=== PATIENT | male | born 1985 | race Caucasian/White ===

== ENCOUNTER 2016-06-13 19:06 | Inpatient (IN) | payer BC ==
[~2016-06-13] VITALS: Ht 190.5 cm; Wt 88.3 kg
[2016-06-13 19:09] VITALS: BP 103/46; PULSE 106; RESP 28; TEMP 97.6; O2SAT 99
[2016-06-13 20:20] VITALS: BP 123/56; PULSE 96; RESP 41; O2SAT 100
[2016-06-13 20:22] LABS: MEAN CORPUSCULAR HGB CONC 27.2 % (32.0-36.0)
[2016-06-13] MEDS ORDERED: SODIUM CHLOR 0.9% 1000 ML INJ 1,000 ML IV ONE ×3 (20:30→21:45)
[2016-06-13 20:35] LABS: BLOOD GAS VENOUS BASE EXCESS -25.9 mmol/L (-2-2); BLOOD GAS VENOUS HCO3 4 mmol/L (22-26); BLOOD GAS VENOUS O2 HGB SAT 63 % (70-76); BLOOD GAS VENOUS PCO2 15 mmHg (44-48); BLOOD GAS VENOUS PO2 41 mmHg (35-40); BLOOD GAS VENOUS pH 6.98 (7.360-7.400); TEMP CORR TO 98.6
[2016-06-13 20:36] LABS: CRITICAL VALUE YES; DRAW SITE IV; OXYGEN DEVICE ROOM AIR; STAT YES
[2016-06-13] MEDS ORDERED: DEXT 5%-NACL 0.9% 1000 ML INJ 1,000 ML IV SCH (20:38)
[2016-06-13] MEDS ORDERED: POTASSIUM CHLOR 20 MEQ PREMIX 100 ML IV PRN ×12 (20:45→22:15)
[2016-06-13] MEDS ORDERED: SODIUM PHOSPHATE INJ 15 MMOL in SODIUM CHLORIDE 0.9% INJ 100 ML IV PRN ×2 (20:45→22:15)
[2016-06-13] MEDS ORDERED: SODIUM BICARBONATE 8.4% SOLN 50 MEQ/50 ML VIAL IV PRN ×4 (20:45→22:15)
[2016-06-13] MEDS ORDERED: INSULIN REGULAR (IV INFUSION) 100 UNITS in SODIUM CHLORIDE 0.9% INJ 99 ML IV SCH ×2 (20:45→22:15)
[2016-06-13] MEDS ORDERED: POTASSIUM CHLOR 40 MEQ PREMIX 100 ML IV PRN ×4 (20:45→22:15)
[2016-06-13] MEDS ORDERED: INSULIN HUMAN REGULAR 1,000 UNITS/10 ML VIAL IV PUSH ONE (20:45)
--- NOTE | 2016-06-13 20:48 | PD ---
HPI Chief Complaint: Diabetic Time Seen by Provider: 20:16 Travel History International Travel<30 days: No Contact w/Intl Traveler<30days: No Traveled to known affect area: No History of Present Illness HPI The patient is a 31 year old male who presents to the [facility] emergency department with a history of not feeling well for the last 2 days. He reports that today he has been vomiting at least 20 times and also had loose stools a few times. The patient reports that he last administered NovoLog insulin 8-10 units this morning. He reports that sometime today his insulin upon ran out of insulin. He reports that he is a type I diabetic that was first diagnosed 20 years of age. He is visiting from out of town. The patient reports that initially he was pain frequently, however later this afternoon he has had darkening of his urine and decreased urine output. He reports that he is very thirsty, lightheaded, or generalized weakness. The patient reports that he was drinking alcohol yesterday. He reports that he drank approximately 7-8 drinks. He reports that he smokes one pack of cigarettes per day. He denies using any drugs. The patient denies having any known fevers, cough, congestion, neck pain, chest pain, or focal neurologic symptoms. The patient is brought in by his friend who reports that he was having difficulty getting ahold of them for the last 2 days. He finally went over to check on him and noticed that he was not acting like himself and brought him into the emergency department for evaluation and treatment. The patient on arrival is noted to have a blood sugar that is critically high. The patient is tachypneic with a respiratory rate in the 40s. [facility] Past Medical History Narrative Medical The patient's past medical history is significant for being diagnosed as a type I diabetic at 20 years of age Diabetes: Yes (TYPE 1) Patient Takes Glucophage: No Tetanus Vaccination: Unknown Influenza Vaccination: No Past Surgical History Narrative Surgical The patient's past surgical history is significant for having an insulin pump placed a year and a half ago. Surgical History: No Previous Surgery Social History Alcohol Use: Yes (occasionally) Tobacco Use: Yes (one pack per day) Substance Use: No Allergies-Medications (Allergen,Severity, Reaction): Coded Allergies: No Known Allergies (Unverified , 06/13/16) Reported Meds & Prescriptions Reported Meds & Active Scripts Active Active Prescriptions or Reported Medications Unobtainable Narrative Medication NovoLog Review of Systems Except as stated in HPI: all other systems reviewed are Neg General / Constitutional: No: Fever Eyes: No: Visual changes HENT: No: Headaches Cardiovascular: Positive: Dyspnea on exertion, No: Chest Pain or Discomfort Respiratory: Positive: Shortness of Breath, No: Cough Gastrointestinal: Positive: Nausea, Vomiting, Diarrhea, Abdominal Pain, Changes in Bowel Habits, Loss of Appetite Genitourinary: Positive: Decreased Urinary Output, No: Dysuria Musculoskeletal: No: Pain Skin: No Rash Neurologic: Positive: Weakness (generalized weak), Change in Mentation ( confusion), No: Focal Abnormalities, Coordination Problem, Slurred Speech, Sensory Disturbance Psychiatric: No: Depression Endocrine: No: Polydipsia Hematologic/Lymphatic: No: Easy Bruising Physical Exam Narrative General: The patient is a well-developed, thin appearing male, tachypneic on examination with generalized weakness. Head and Neck exam: Head is normocephalic atraumatic. Eyes: EOMI, pupils are equal round and reactive to light. Nose: Midline septum with pink mucous membranes Mouth: Dentition unremarkable. Dry mucus membranes. Posterior oropharynx is not erythematous. No tonsillar hypertrophy. Uvula midline. Airway patent. Neck: No palpable lymphadenopathy. No nuchal rigidity. No thyromegaly. Cardiovascular: Sinus tachycardia in the low 100s, wide complex noted on manager cardiac cath, i- STAT with creatinine was less ordered without murmurs, gallops, or rubs. No pulse deficit to the extremities. Lungs: Tachypnea with a rate in the 40s, Clear to auscultation bilaterally. No wheezes , rhonchi, or rales. Abdomen: Soft, with midepigastric abdominal discomfort on palpation. No tenderness on palpation of the other 4 quadrants of abdomen. No guarding, rebound, or rigidity. Normal bowel sounds are audible. Negative Lr's sign. No tenderness on palpation of McBurney's point. Extremities: No clubbing, cyanosis, or edema. 2+ pulses in all 4 extremities. No calf tenderness on palpation. Back: No spinous process tenderness to palpation. No costovertebral angle tenderness to palpation. Neurologic Exam: Cranial nerves 2-12 were intact on exam. Strength is 5/5 in all 4 extremities. No sensory deficits noted. The patient is oriented to person, however not place , time, or situation. Skin Exam: No rash noted. Intact skin that is warm and dry. Poor skin turgor. Data Data Last Documented VS Vital Signs Date Time Temp Pulse Resp B/P Pulse Ox O2 Delivery O2 Flow Rate FiO2 06/13/16 21:00 94 40 128/58 100 Nasal Cannula 2 06/13/16 19:09 97.6 Orders Electrocardiogram (06/13/16 20:19) Complete Blood Count With Diff (06/13/16 20:19) Urinalysis - C+S If Indicated (06/13/16 20:19) Chest, Single Ap (06/13/16 20:19) Iv Access Insert/Monitor (06/13/16 20:19) Ecg Monitoring (06/13/16 20:19) Oximetry (06/13/16 20:19) Sodium Chlor 0.9% 1000 Ml Inj (Ns 1000 M (06/13/16 20:30) Sodium Chlor 0.9% 1000 Ml Inj (Ns 1000 M (06/13/16 20:30) Blood Gas Venous (Vbg) (06/13/16 20:31) Diet Npo (06/14/16 Breakfast) Sodium Chlor 0.9% 1000 Ml Inj (Ns 1000 M (06/13/16 20:38) Dext 5%-Nacl 0.9% 1000 Ml Inj (D5w-Ns 10 (06/13/16 20:38) Insulin Human Regular Inj (Novolin R Inj (06/13/16 20:45) Insulin Regular (Iv Infusion) (Novolin R (06/13/16 20:45) Potassium Chlor 40 Meq Premix (Kcl 40 Me (06/13/16 20:45) Potassium Chlor 20 Meq Premix (Kcl 20 Me (06/13/16 20:45) Potassium Chlor 20 Meq Premix (Kcl 20 Me (06/13/16 20:45) Potassium Chlor 20 Meq Premix (Kcl 20 Me (06/13/16 20:45) Potassium Chlor 20 Meq Premix (Kcl 20 Me (06/13/16 20:45) Potassium Chlor 20 Meq Premix (Kcl 20 Me (06/13/16 20:45) Potassium Chlor 20 Meq Premix (Kcl 20 Me (06/13/16 20:45) Sodium Bicarbonate 8.4% Inj (Sodium Bica (06/13/16 20:45) Sodium Bicarbonate 8.4% Inj (Sodium Bica (06/13/16 20:45) Sodium Phosphate Inj (Sodium Phosphate I (06/13/16 20:45) Hemoglobin (Hgb) A1c (06/13/16 20:38) Basic Metabolic Panel (Bmp) (06/14/16 01:38) Basic Metabolic Panel (Bmp) (06/14/16 07:38) Basic Metabolic Panel (Bmp) (06/14/16 13:38) Basic Metabolic Panel (Bmp) (06/14/16 19:38) Magnesium (Mg) (06/14/16 01:38) Magnesium (Mg) (06/14/16 07:38) Magnesium (Mg) (06/14/16 13:38) Magnesium (Mg) (06/14/16 19:38) Phosphorus (Po4) (06/14/16 01:38) Phosphorus (Po4) (06/14/16 07:38) Phosphorus (Po4) (06/14/16 13:38) Phosphorus (Po4) (06/14/16 19:38) Beta Hydroxybutyrate (Acetone) (06/14/16 07:38) Beta Hydroxybutyrate (Acetone) (06/14/16 19:38) Potassium Chlor 40 Meq Premix (Kcl 40 Me (06/13/16 20:45) Ceftriaxone Inj (Rocephin Inj) (06/13/16 21:15) Azithromycin Inj (Zithromax Inj) (06/13/16 21:15) Calcium Gluconate Inj (Calcium Gluconate (06/13/16 21:30) Restraints Non-Violent AMALIA.Q3H (06/13/16 21:24) Admit Order (Ed Use Only) (06/13/16 21:27) I-Stat Creatinine (06/13/16 20:30) I-Stat Profile (06/13/16 20:30) Protein Corrected Calcium(Pcc) (06/14/16 02:00) Labs Laboratory Tests Test 06/13/16 06/13/16 06/13/16 02:50 20:30 20:31 Nasal Screen MRSA (PCR) NEGATIVE White Blood Count 23.4 TH/MM3 Red Blood Count 4.82 MIL/MM3 Hemoglobin 13.8 GM/DL Bedside Hemoglobin 14.6 G/DL Hematocrit 50.6 % Bedside Hematocrit 43.0 % Mean Corpuscular Volume 105.1 FL Mean Corpuscular Hemoglobin 28.6 PG Mean Corpuscular Hemoglobin 27.2 % Concent Red Cell Distribution Width 14.3 % Platelet Count 311 TH/MM3 Mean Platelet Volume 8.4 FL Neutrophils (%) (Auto) 78.7 % Lymphocytes (%) (Auto) 13.4 % Monocytes (%) (Auto) 6.9 % Eosinophils (%) (Auto) 0.6 % Basophils (%) (Auto) 0.4 % Neutrophils # (Auto) 18.4 TH/MM3 Lymphocytes # (Auto) 3.1 TH/MM3 Monocytes # (Auto) 1.6 TH/MM3 Eosinophils # (Auto) 0.1 TH/MM3 Basophils # (Auto) 0.1 TH/MM3 CBC Comment AUTO DIFF Differential Total Cells 100 Counted Neutrophils % (Manual) 71 % Band Neutrophils % 11 % Lymphocytes % 6 % Monocytes % 10 % Neutrophils # (Manual) 19.7 TH/MM3 Metamyelocytes 2 % Differential Comment FINAL DIFF MANUAL Platelet Estimate NORMAL Platelet Morphology Comment NORMAL Bedside Sodium 110 MMOL/L Bedside Potassium GREATER THAN 9.0 MMOL/L Bedside Chloride 86 MMOL/L Bedside Blood Urea Nitrogen 109 MG/DL Bedside Creatinine 4.7 MG/DL Bedside Glucose MG/DL Blood Gas Puncture Site IV Blood Gas Patient Temperature 98.6 Venous Blood pH 6.98 Venous Blood Partial Pressure 15 mmHg CO2 Venous Blood Partial Pressure 41 mmHg O2 Venous Blood HCO3 4 mmol/L Venous Blood Oxygen Saturation 63 % Venous Blood Oxygen Content 13.0 Vol % Venous Blood Base Excess -25.9 mmol/L Oxygen Delivery Device ROOM AIR MDM Medical Decision Making Medical Screen Exam Complete: Yes Emergency Medical Condition: Yes Medical Record Reviewed: Yes Interpretation(s) Laboratory Tests Test 06/13/16 06/13/16 20:30 20:31 White Blood Count 23.4 TH/MM3 (4.0-11.0) Mean Corpuscular Volume 105.1 FL (80.0-100.0) Mean Corpuscular Hemoglobin 27.2 % Concent (32.0-36.0) Neutrophils (%) (Auto) 78.7 % (16.0-70.0) Neutrophils # (Auto) 18.4 TH/MM3 (1.8-7.7) Monocytes # (Auto) 1.6 TH/MM3 (0-0.9) Neutrophils % (Manual) 71 % (16-70) Band Neutrophils % 11 % (0-6) Lymphocytes % 6 % (9-44) Monocytes % 10 % (0-8) Neutrophils # (Manual) 19.7 TH/MM3 (1.8-7.7) Metamyelocytes 2 % (0-1) Bedside Sodium 110 MMOL/L (138-146) Bedside Potassium GREATER THAN 9.0 MMOL/L (3.5-4.9) Bedside Chloride 86 MMOL/L (98-109) Bedside Blood Urea Nitrogen 109 MG/DL (8-26) Bedside Creatinine 4.7 MG/DL (0.8-1.3) Venous Blood pH 6.98 (7.360-7.400) Venous Blood Partial Pressure 15 mmHg (44-48) CO2 Venous Blood Partial Pressure 41 mmHg (35-40) O2 Venous Blood HCO3 4 mmol/L (22-26) Venous Blood Oxygen Saturation 63 % (70-76) Venous Blood Base Excess -25.9 mmol/L (-2-2) Last Impressions Chest X-Ray 06/13/162018 Signed Impressions: Service Date/Time: Monday, June 13, 2016 20:31 - CONCLUSION: Possible early lingular infiltrate. Jean-Pierre Bhakta MD Differential Diagnosis DKA with electrolyte derangements, versus hyperosmolar coma, versus electrolyte abnormalities with dehydration Narrative Course During the course of the patients emergency department visit, the patients history, examination, and differential diagnosis were reviewed with the patient. The patient had IV access obtained and blood work sent for analysis. A VBG was ordered. The patient was noted to have a pH of 6.98, bicarbonate 3.5. The patient had 2 large-bore IVs placed. The patient was started on normal saline 2 L wide open. An insulin bolus of 8 units was administered 1. Insulin by drip be administered. An EKG was done on arrival. The patient's EKG reveals an ectopic atrial rhythm, marked right axis deviation, right bundle branch block, QRS duration is 172 ms, QTc is 447 ms. The patient's EKG findings are highly suspicious for hyperkalemia. An i-STAT with creatinine was emergently ordered. Unfortunately it took an excessive amount of time to receive this back. Final results revealed a sodium of 110, potassium greater than 9, chloride 86, BUN 109, creatinine 4.7. The patient was provided calcium gluconate 1 g IV, an additional amp of bicarbonate, albuterol nebulizer treatment 1, Kayexalate by mouth. The patients laboratory studies were reviewed and remarkable for a complete metabolic profile an initial sodium of 117, potassium 6.0, chloride 76, bicarbonate 6.0, anion gap 35, BUN 73, creatinine 4.99, GFR 14, glucose 1305, protein corrected calcium 7.8, magnesium 3.5, alkaline phosphatase 185, lipase 283, beta hydroxybutyrate was 17.78, urinalysis shows 30 protein thousand glucose 40 ketones moderate blood rare bacteria. Radiology studies were reviewed and remarkable for CT scan of the brain that shows no acute abnormality. Chest x-ray shows a possible early lingular infiltrate. The patient was given Rocephin 1 g IV, Zithromax 500 IV. The patients results were discussed with the patient, including the plan of care. I explained that further testing and/ or monitoring is indicated based on the patients history, examination, and/ or laboratory findings. Therefore, I recommended admission for additional evaluation. The patient expressed understanding and was agreeable with this plan. The patient was admitted to the hospital in critical condition and sent to a bed under the care of the front worker. Critical Care Narrative Aggregate critical care time was 50 minutes. Time to perform other separately billable procedures was not included in the critical care time. My time did not include minutes spent treating any other patients simultaneously or on activities that did not directly contribute to the patient's treatment. The services I provided to this patient were to treat and/or prevent clinically significant deterioration that could result in: Respiratory failure, cardiovascular collapse, persistent encephalopathy I provided critical care services requiring my management, as noted below: Chart data review, documentation time, medication orders and management, vital sign assessments/reviewing monitor data, ordering and reviewing lab tests, ordering and interpreting/reviewing x-rays and diagnostic studies, care of the patient and discussion of the patient with the admitting physicians. Physician Communication Physician Communication The patient's case was discussed with Dr. Murphy who did agree to admit the patient for further evaluation and treatment at this time. Diagnosis Primary Impression: DKA (diabetic ketoacidoses) Qualified Code: E10.11 - Diabetic ketoacidosis with coma associated with type 1 diabetes mellitus Additional Impressions: Acute renal failure Qualified Code: N17.9 - Acute renal failure, unspecified acute renal failure type Hyperkalemia Admitting Information Admitting Physician Requests: Admit Scripts Unable to Obtain Active Prescriptions or Reported Meds Xuan Bingham MD Jun 13, 2016 20:48
[2016-06-13 20:55] LABS: AUTOMATED NEUTROPHIL # 18.4 TH/MM3 (1.8-7.7); BASOPHIL # 0.1 TH/MM3 (0-0.2); BASOPHIL % 0.4 % (0.0-2.0); EOSINOPHIL # 0.1 TH/MM3 (0-0.4); EOSINOPHIL % 0.6 % (0.0-4.0); HEMATOCRIT 50.6 % (39.0-51.0); LYMPH % 13.4 % (9.0-44.0); LYMPHOCYTE # 3.1 TH/MM3 (1.0-4.8); MEAN CELL VOLUME 105.1 FL (80.0-100.0); MEAN CORPUSCULAR HEMOGLOBIN 28.6 PG (27.0-34.0); MONO % 6.9 % (0.0-8.0); NEUT % 78.7 % (16.0-70.0); PLATELET COUNT 311 TH/MM3 (150-450); RED BLOOD COUNT 4.82 MIL/MM3 (4.50-5.90); RED CELL DISTRIBUTION WIDTH 14.3 % (11.6-17.2); WHITE BLOOD COUNT 23.4 TH/MM3 (4.0-11.0)
--- NOTE | 2016-06-13 20:59 | RADRPT ---
EXAM DATE/TIME: 06/13/2016 20:31 [facility] COMPARISON: No previous studies available for comparison. INDICATIONS : Short of breath. MEDICAL HISTORY : Diabetes. SURGICAL HISTORY : None. ENCOUNTER: Initial ACUITY: 1 day PAIN SCORE: 0/10 LOCATION: Bilateral chest FINDINGS: Subtle opacity is noted along the left heart border. The lungs are otherwise clear. Heart and mediastinal structures are unremarkable. Osseous structures are intact. CONCLUSION: Possible early lingular infiltrate. Jean-Pierre Bhakta MD on June 13, 2016 at 20:54 Board Certified Radiologist. This report was verified electronically.
[2016-06-13 21:00] VITALS: BP 128/58; PULSE 94; RESP 40; O2SAT 100
[2016-06-13] MEDS: SODIUM CHLOR 0.9% 1000 ML INJ 1,000 ML IV SCH ×5 (21:03→23:18)
[2016-06-13 21:13] LABS: HEMO FLAGS AUTO DIFF
[2016-06-13] MEDS ORDERED: AZITHROMYCIN INJ 500 MG in SODIUM CHLOR 0.9% 250 ML INJ 250 ML IV ONE (21:15)
[2016-06-13] MEDS ORDERED: cefTRIAXone INJ 1,000 MG in SODIUM CHLORIDE 0.9% INJ 100 ML IV ONE (21:15)
[2016-06-13] MEDS ORDERED: CALCIUM GLUCONATE 10% 1 GM/10 ML VIAL IV PUSH ONE (21:30)
[2016-06-13 21:42] LABS: BANDS 11 % (0-6); METAMYELOCYTES 2 % (0-1); NEUTROPHIL # MANUAL DIFF 19.7 TH/MM3 (1.8-7.7); POLYS (SEG NEUTROPHILS) 71 % (16-70); WBC DIFF SAMPLE 100
[2016-06-13 21:43] LABS: PLATELET ESTIMATE SMEAR NORMAL (NORMAL); PLATELET MORPHOLOGY NORMAL (NORMAL)
[2016-06-13 21:44] LABS: SCAN/DIFF FINAL DIFF MANUAL
[2016-06-13] MEDS ORDERED: RESP: ALBUTEROL 2.5 MG/3 ML NEB (SCH) NEB ONE (21:45)
[2016-06-13] MEDS ORDERED: SODIUM BICARBONATE 8.4% INJ 50 MEQ/50 ML SYR IV PUSH ONE (21:45)
[2016-06-13 21:57] LABS: I-STAT POTASSIUM GREATER THAN 9.0 MMOL/L (3.5-4.9); I-STAT SODIUM 110 MMOL/L (138-146)
[2016-06-13 22:00] VITALS: BP 141/77; PULSE 94; RESP 36; O2SAT 100
[2016-06-13] MEDS ORDERED: SODIUM POLYSTYRENE SULFONATE SUSP 15 GM/60 ML CUP PO ONE (22:00)
[2016-06-13] MEDS ORDERED: CHLORHEXIDINE GLUCONATE 2 % 1 PACK (2 CLOTHS) TOP PRN (22:15)
[2016-06-13] MEDS ORDERED: ACETAMINOPHEN 325 MG TAB PO PRN (22:15)
[2016-06-13] MEDS ORDERED: RESP: ALBUTEROL 2.5 MG/IPRATROPIUM 0.5 MG NEB (PRN) INH (22:15)
[2016-06-13] MEDS ORDERED: MISCELLANEOUS NURSING INFORMATION XX SCH (22:15)
[2016-06-13] MEDS ORDERED: MORPHINE SULFATE 4 MG/ML INJ IV PRN (22:15)
[2016-06-13] MEDS ORDERED: oxyCODONE/ACETAMINOPHEN 5 MG/325 MG TAB PO PRN (22:15)
[2016-06-13] MEDS ORDERED: METOCLOPRAMIDE HCL 10 MG/2 ML VIAL IV PRN ×2 (22:15→22:56)
--- NOTE | 2016-06-13 22:17 | HHI.HP ---
HPI Service Critical Care Medicine Primary Care Physician No Primary Care Physician Admission Diagnosis DKA Diagnosis: Travel History International Travel<30 Days: No Contact w/Intl Traveler <30 Da: No Traveled to Known Affected Are: No History of Present Illness 31 year old male presents because he has been vomiting at least 20 times and also had loose stools a few times. The patient reports that he last administered NovoLog insulin 8-10 units this morning. Per patient sometime today his insulin pump ran out of insulin. He is a type I diabetic that was first diagnosed 20 years of age. He is admitted to ICU with the DKA. Review of Systems Constitutional: COMPLAINS OF: Diaphoretic episodes, Fatigue, DENIES: Fever, Weight gain, Weight loss, Chills, Dizziness, Change in appetite, Night Sweats Endocrine: DENIES: Heat/cold intolerance, Polydipsia, Polyuria, Polyphagia Eyes: DENIES: Blurred vision, Diplopia, Eye inflammation, Eye pain, Vision loss , Photosensitivity, Double Vision Ears, nose, mouth, throat: DENIES: Tinnitus, Hearing loss, Vertigo, Nasal discharge, Oral lesions, Throat pain, Hoarseness, Ear Pain, Running Nose, Epistaxis, Sinus Pain, Toothache, Odynophagia Respiratory: DENIES: Apneas, Cough, Snoring, Wheezing, Hemoptysis, Sputum production, Shortness of breath Cardiovascular: DENIES: Chest pain, Palpitations, Syncope, Dyspnea on Exertion , PND, Lower Extremity Edema, Orthopnea, Claudication Gastrointestinal: COMPLAINS OF: Abdominal pain, Diarrhea, Nausea, Vomiting, DENIES: Black stools, Bloody stools, Constipation, Difficulty Swallowing, Anorexia Genitourinary: DENIES: Sexual dysfunction, Urinary frequency, Urinary incontinence, Urgency, Hematuria, Dysuria, Nocturia, Penile Discharge, Testicular Pain, Testicular Swelling Musculoskeletal: DENIES: Joint pain, Muscle aches, Stiffness, Joint Swelling, Back pain, Neck pain Integumentary: DENIES: Abnormal pigmentation, Nail changes, Pruritus, Rash Hematologic/lymphatic: DENIES: Bruising, Lymphadenopathy Immunologic/allergic: DENIES: Eczema, Urticaria Neurologic: DENIES: Abnormal gait, Headache, Localized weakness, Paresthesias, Seizures, Speech Problems, Tremor, Poor Balance Psychiatric: DENIES: Anxiety, Confusion, Mood changes, Depression, Hallucinations, Agitation, Suicidal Ideation, Homicidal Ideation, Delusions Past Family Social History Allergies: Coded Allergies: No Known Allergies (Unverified , 06/13/16) Past Medical History Insulin-dependent diabetes Past Surgical History Insulin pump insertion Reported Medications Reported Meds & Active Scripts Active Active Prescriptions or Reported Medications Unobtainable Active Ordered Medications Current Medications Medications (Trade) Dose Ordered Sig/Stella Route PRN Reason Start Time Stop Time Status Last Admin Dose Admin Sodium Chloride 1,000 ml @ 250 mls/hr Q4H IV 06/13/16 22:05 Dextrose/Sodium Chloride 1,000 ml @ 200 mls/hr Q5H IV 06/13/16 22:05 Insulin Human Regular 100 units/ Sodium Chloride 100 ml @ 0 mls/hr TITRATE IV 06/13/16 22:15 Potassium Chloride 100 ml @ 100 mls/hr Q1H PRN IV SEE LABEL COMMENTS 06/13/16 22:15 Potassium Chloride 100 ml @ 50 mls/hr Q2H PRN IV SEE LABEL COMMENTS 06/13/16 22:15 Potassium Chloride 100 ml @ 100 mls/hr Q1H PRN IV SEE LABEL COMMENTS 06/13/16 22:15 Potassium Chloride 100 ml @ 100 mls/hr Q1H PRN IV SEE LABEL COMMENTS 06/13/16 22:15 Potassium Chloride 100 ml @ 50 mls/hr Q2H PRN IV SEE LABEL COMMENTS 06/13/16 22:15 Potassium Chloride 100 ml @ 50 mls/hr Q2H PRN IV SEE LABEL COMMENTS 06/13/16 22:15 Potassium Chloride 100 ml @ 50 mls/hr Q2H PRN IV SEE LABEL COMMENTS 06/13/16 22:15 Potassium Chloride (KCl 20 Meq Premix Inj) 100 ml @ 50 mls/hr Q2H PRN IV SEE LABEL COMMENTS 06/13/16 22:15 Sodium Bicarbonate (Sodium Bicarbonate 8.4% Inj) 100 meq UNSCH PRN IV SEE LABEL COMMENTS 06/13/16 22:15 Sodium Bicarbonate 50 meq 50 meq UNSCH PRN IV SEE LABEL COMMENTS 06/13/16 22:15 Sodium Phosphate/ Sodium Chloride (Sodium Phosphate Inj/NS Inj) 105 ml @ 25 mls/hr UNSCH PRN IV SEE LABEL COMMENTS 06/13/16 22:15 Miscellaneous Information 1 [id number] XX 06/13/16 22:15 Chlorhexidine Gluconate (Chlorhexidine 2% Cloth) 3 pack Taper DAILY@04 TOP 06/14/16 04:00 2/24/18 03:59 Chlorhexidine Gluconate (Chlorhexidine 2% Cloth) 3 pack UNSCH PRN TOP HYGIENIC CARE 06/13/16 22:15 Acetaminophen (Tylenol) 650 mg Q6H PRN PO PAIN 1-10 AND/OR FEVER >101F 06/13/16 22:15 Oxycodone/ Acetaminophen (Percocet 5-325 Mg) 1 tab Q4H PRN PO PAIN SCALE 1 TO 5 06/13/16 22:15 Morphine Sulfate (Morphine Inj) 2 mg Q2H PRN IV PAIN SCALE 6 TO 10 06/13/16 22:15 06/13/16 23:16 Famotidine (Pepcid) 10 mg Q12HR PO 06/14/16 09:00 Ondansetron HCl (Zofran Inj) 4 mg Q6H PRN IV NAUSEA OR VOMITING 06/13/16 22:15 Docusate Sodium (Colace) 100 mg BID PO 06/14/16 09:00 Heparin Sodium (Porcine) (Heparin Inj) 5,000 units Q12H SQ 06/13/16 23:00 06/13/16 23:17 Miscellaneous (Pill Splitter) 1 ea UNSCH PRN OTHER SEE LABEL COMMENTS 06/13/16 23:00 Metoclopramide HCl (Reglan Inj) 5 mg Q6H PRN IV NAUSEA OR VOMITING 06/13/16 22:56 Family History Noncontributory Social History Negative 3 Physical Exam Vital Signs Vital Signs Date Time Temp Pulse Resp B/P Pulse Ox O2 Delivery O2 Flow Rate FiO2 06/13/16 20:20 41 100 Nasal Cannula 2 06/13/16 20:20 96 41 123/56 100 Nasal Cannula 2 06/13/16 20:20 98 41 100 Room Air 06/13/16 19:09 97.6 106 28 103/46 99 Room Air Physical Exam GENERAL: Well-nourished, well-developed patient. SKIN: Warm and dry. HEAD: Normocephalic. EYES: No scleral icterus. No injection or drainage. NECK: Supple, trachea midline. No JVD or lymphadenopathy. CARDIOVASCULAR: Regular rate and rhythm without murmurs, gallops, or rubs. RESPIRATORY: Breath sounds equal bilaterally. No accessory muscle use. GASTROINTESTINAL: Abdomen soft, non-tender, nondistended. MUSCULOSKELETAL: No cyanosis, or edema. BACK: Nontender without obvious deformity. No CVA tenderness. Laboratory Laboratory Tests Test 06/13/16 06/13/16 20:30 20:31 White Blood Count 23.4 Red Blood Count 4.82 Hemoglobin 13.8 Bedside Hemoglobin 14.6 Hematocrit 50.6 Bedside Hematocrit 43.0 Mean Corpuscular Volume 105.1 Mean Corpuscular Hemoglobin 28.6 Mean Corpuscular Hemoglobin 27.2 Concent Red Cell Distribution Width 14.3 Platelet Count 311 Mean Platelet Volume 8.4 Neutrophils (%) (Auto) 78.7 Lymphocytes (%) (Auto) 13.4 Monocytes (%) (Auto) 6.9 Eosinophils (%) (Auto) 0.6 Basophils (%) (Auto) 0.4 Neutrophils # (Auto) 18.4 Lymphocytes # (Auto) 3.1 Monocytes # (Auto) 1.6 Eosinophils # (Auto) 0.1 Basophils # (Auto) 0.1 CBC Comment AUTO DIFF Differential Total Cells 100 Counted Neutrophils % (Manual) 71 Band Neutrophils % 11 Lymphocytes % 6 Monocytes % 10 Neutrophils # (Manual) 19.7 Metamyelocytes 2 Differential Comment FINAL DIFF MANUAL Platelet Estimate NORMAL Platelet Morphology Comment NORMAL Bedside Sodium 110 Bedside Potassium GREATER THAN 9.0 Bedside Chloride 86 Bedside Blood Urea Nitrogen 109 Bedside Creatinine 4.7 Bedside Glucose Blood Gas Puncture Site IV Blood Gas Patient Temperature 98.6 Venous Blood pH 6.98 Venous Blood Partial Pressure 15 CO2 Venous Blood Partial Pressure 41 O2 Venous Blood HCO3 4 Venous Blood Oxygen Saturation 63 Venous Blood Oxygen Content 13.0 Venous Blood Base Excess -25.9 Oxygen Delivery Device ROOM AIR Result Diagram: 06/13/162029 Imaging Last [address] 06/13/162144 Signed Impressions: Service Date/Time: Monday, June 13, 2016 23:38 - CONCLUSION: Normal examination for a patient of this age. Víctor Nicole MD Chest X-Ray 06/13/162018 Signed Impressions: Service Date/Time: Monday, June 13, 2016 20:31 - CONCLUSION: Possible early lingular infiltrate. Jean-Pierre Bhakta MD Assessment and Plan Assessment and Plan DKA - Insulin drip - Monitor electrolytes - ICU admission Acute kidney injury - Dehydration - Aggressive IV fluid resuscitation DVT GI prophylaxis - Early aggressive mobilization; Pepcid Critical Care: The total critical care time was 35 minutes. Time to perform other separately billable procedures was not included in the critical care time. Rik Murphy MD Jun 13, 2016 22:17
[2016-06-13 22:44] LABS: CALCIUM-PROTEIN CORRECTED 7.8 MG/DL (8.5-10.1); MAGNESIUM 3.5 MG/DL (1.5-2.5); TOTAL BILIRUBIN ADULT 0.5 MG/DL (0.2-1.0)
[2016-06-13 22:50] LABS: BETA-HYDROXYBUTYRATE 17.78 MMOL/L (0.00-0.39)
[2016-06-13 23:00] VITALS: BP 121/63; PULSE 116; RESP 31; O2SAT 100
[2016-06-13] MEDS ORDERED: PILL SPLITTER OTHER PRN (23:00)
[2016-06-13] MEDS: HEPARIN SODIUM - SQ 10,000 UNITS/ML VIAL SQ SCH (23:17)
[2016-06-13 23:22] LABS: BACTERIA, URINE RARE /hpf; BLOOD, URINE MOD (NEG); GLUCOSE,URINE 1000 mg/dL (NEG); HYALINE CAST, URINE 7 /lpf (RARE); KETONE, URINE 40 mg/dL (NEG); MUCUS URINE FEW /lpf (OCC); NITRITE,URINE NEG (NEG); SQUAMOUS EPITHELIAL CELL URINE <1 /hpf (0-5); URINE COLOR LIGHT-YELLOW (YELLW/STRAW)
[2016-06-13 23:24] LABS: COMMENT (UR) CATH-CULTURE IND; CULTURE IF INDICATED CATH CULTURE IND
[2016-06-14] VITALS (16 sets, daily range): BP systolic 121–143; BP diastolic 57–84; PULSE 84–109; RESP 18–26; TEMP 96.6–99.1; O2SAT 91–100
--- NOTE | 2016-06-14 00:13 | RADRPT ---
EXAM DATE/TIME: 06/13/2016 23:38 [facility] COMPARISON: No previous studies available for comparison. INDICATIONS : Altered mental status. RADIATION DOSE: 46.71 CTDIvol (mGy) MEDICAL HISTORY : Diabetes mellitus type 1. SURGICAL HISTORY : Non-responsive. None. ENCOUNTER: Initial ACUITY: 1 day PAIN SCALE: 0/10 LOCATION: cranial TECHNIQUE: Multiple contiguous axial images were obtained of the head. Using automated exposure control and adj ustment of the mA and/or kV according to patient size, radiation dose was kept as low as reasonably a chievable to obtain optimal diagnostic quality images. FINDINGS: CEREBRUM: The ventricles are normal for age. No evidence of midline shift, mass lesion, hemorrhage or acute in farction. No extra-axial fluid collections are seen. POSTERIOR FOSSA: The cerebellum and brainstem are intact. The 4th ventricle is midline. The cerebellopontine angle i s unremarkable. EXTRACRANIAL: The visualized portion of the orbits is intact. SKULL: The calvaria is intact. No evidence of skull fracture. CONCLUSION: Normal examination for a patient of this age. Víctor Nicole MD on June 14, 2016 at 0:09 Board Certified Radiologist. This report was verified electronically.
[2016-06-14] MEDS: CHLORHEXIDINE GLUCONATE 2 % 1 PACK (2 CLOTHS) TOP SCH (01:57)
[2016-06-14] MEDS: SODIUM CHLOR 0.9% 1000 ML INJ 1,000 ML IV SCH ×4 (02:05→16:00)
[2016-06-14] MEDS: DEXT 5%-NACL 0.9% 1000 ML INJ 1,000 ML IV SCH ×2 (02:20→10:19)
[2016-06-14 02:57] LABS: BICARBONATE 10.2 MEQ/L (21.0-32.0); POTASSIUM 4.2 MEQ/L (3.5-5.1)
[2016-06-14 03:20] LABS: CALCIUM-PROTEIN CORRECTED 7.7 MG/DL (8.5-10.1)
[2016-06-14 03:30] LABS: BICARBONATE 11.9 MEQ/L (21.0-32.0); POTASSIUM 4.2 MEQ/L (3.5-5.1)
[2016-06-14 04:12] LABS: CALCIUM-PROTEIN CORRECTED 7.8 MG/DL (8.5-10.1)
[2016-06-14 08:46] LABS: BETA-HYDROXYBUTYRATE 3.32 MMOL/L (0.00-0.39); BICARBONATE 18.9 MEQ/L (21.0-32.0); MAGNESIUM 2.8 MG/DL (1.5-2.5); POTASSIUM 3.7 MEQ/L (3.5-5.1)
--- NOTE | 2016-06-14 09:46 | HHI.CCPN ---
Subjective Remarks/Hospital Course 31 year old male presents because he has been vomiting at least 20 times and also had loose stools a few times. The patient reports that he last administered NovoLog insulin 8-10 units this morning. Per patient sometime today his insulin pump ran out of insulin. He is a type I diabetic that was first diagnosed 20 years of age. He is admitted to ICU with the DKA. 06/14 Patient is lying in bed in NAD. On Insulin drip 8u/hr, AG 16 this morning. renal function improving with Cr: 2.76 from 3.96 Objective Vital Signs Date Time Temp Pulse Resp B/P Pulse Ox O2 Delivery O2 Flow Rate FiO2 06/14/16 06:00 106 06/14/16 04:25 95 Nasal Cannula 2.00 06/14/16 04:00 98.8 25 131/75 Result Diagram: 06/13/16 2030 06/14/16 0744 Other Results Laboratory Tests Test 06/13/16 06/13/16 06/13/16 06/13/16 20:30 20:31 22:16 22:45 White Blood Count 23.4 TH/MM3 Red Blood Count 4.82 MIL/MM3 Hemoglobin 13.8 GM/DL Bedside Hemoglobin 14.6 G/DL Hematocrit 50.6 % Bedside Hematocrit 43.0 % Mean Corpuscular Volume 105.1 FL Mean Corpuscular Hemoglobin 28.6 PG Mean Corpuscular Hemoglobin 27.2 % Concent Red Cell Distribution Width 14.3 % Platelet Count 311 TH/MM3 Mean Platelet Volume 8.4 FL Neutrophils (%) (Auto) 78.7 % Lymphocytes (%) (Auto) 13.4 % Monocytes (%) (Auto) 6.9 % Eosinophils (%) (Auto) 0.6 % Basophils (%) (Auto) 0.4 % Neutrophils # (Auto) 18.4 TH/MM3 Lymphocytes # (Auto) 3.1 TH/MM3 Monocytes # (Auto) 1.6 TH/MM3 Eosinophils # (Auto) 0.1 TH/MM3 Basophils # (Auto) 0.1 TH/MM3 CBC Comment AUTO DIFF Differential Total Cells 100 Counted Neutrophils % (Manual) 71 % Band Neutrophils % 11 % Lymphocytes % 6 % Monocytes % 10 % Neutrophils # (Manual) 19.7 TH/MM3 Metamyelocytes 2 % Differential Comment FINAL DIFF MANUAL Platelet Estimate NORMAL Platelet Morphology Comment NORMAL Bedside Sodium 110 MMOL/L Bedside Potassium GREATER THAN 9.0 MMOL/L Bedside Chloride 86 MMOL/L Bedside Blood Urea Nitrogen 109 MG/DL Bedside Creatinine 4.7 MG/DL Bedside Glucose MG/DL Blood Gas Puncture Site IV Blood Gas Patient Temperature 98.6 Venous Blood pH 6.98 Venous Blood Partial Pressure 15 mmHg CO2 Venous Blood Partial Pressure 41 mmHg O2 Venous Blood HCO3 4 mmol/L Venous Blood Oxygen Saturation 63 % Venous Blood Oxygen Content 13.0 Vol % Venous Blood Base Excess -25.9 mmol/L Oxygen Delivery Device ROOM AIR Sodium Level 117 MEQ/L Potassium Level 6.0 MEQ/L Chloride Level 76 MEQ/L Carbon Dioxide Level 6.0 MEQ/L Anion Gap 35 MEQ/L Blood Urea Nitrogen 73 MG/DL Creatinine 4.99 MG/DL Estimat Glomerular Filtration 14 ML/MIN Rate Random Glucose 1305 MG/DL Calcium Level 7.4 MG/DL Protein Corrected Calcium 7.8 MG/DL Magnesium Level 3.5 MG/DL Total Bilirubin 0.5 MG/DL Aspartate Amino Transf 36 U/L (AST/SGOT) Alanine Aminotransferase 32 U/L (ALT/SGPT) Alkaline Phosphatase 185 U/L Total Protein 6.4 GM/DL Albumin 3.3 GM/DL Lipase 283 U/L B-Hydroxybutyrate 17.78 MMOL/L Urine Color LIGHT-YELLOW Urine Turbidity HAZY Urine pH 5.0 Urine Specific [place] 1.017 Urine Protein 30 mg/dL Urine Glucose (UA) 1000 mg/dL Urine Ketones 40 mg/dL Urine Occult Blood MOD Urine Nitrite NEG Urine Bilirubin NEG Urine Urobilinogen LESS THAN 2.0 MG/DL Urine Leukocyte Esterase NEG Urine RBC LESS THAN 1 /hpf Urine WBC 5 /hpf Urine Squamous Epithelial <1 /hpf Cells Urine Amorphous Sediment RARE Urine Bacteria RARE /hpf Urine Hyaline Casts 7 /lpf Urine Mucus FEW /lpf Microscopic Urinalysis Comment CATH-CULTURE IND Test 06/14/16 06/14/16 06/14/16 06/14/16 00:00 01:00 02:00 03:00 Random Glucose 1060 MG/DL 919 MG/DL 782 MG/DL 678 MG/DL Sodium Level 132 MEQ/L 134 MEQ/L Potassium Level 4.2 MEQ/L 4.2 MEQ/L Chloride Level 94 MEQ/L 96 MEQ/L Carbon Dioxide Level 10.2 MEQ/L 11.9 MEQ/L Anion Gap 28 MEQ/L 26 MEQ/L Blood Urea Nitrogen 74 MG/DL 70 MG/DL Creatinine 3.96 MG/DL 3.73 MG/DL Estimat Glomerular Filtration 18 ML/MIN 19 ML/MIN Rate Calcium Level 7.1 MG/DL 7.3 MG/DL Protein Corrected Calcium 7.7 MG/DL 7.8 MG/DL Phosphorus Level 3.1 MG/DL 2.7 MG/DL Magnesium Level 3.0 MG/DL 3.0 MG/DL Total Protein 5.9 GM/DL 6.1 GM/DL Test 06/14/16 07:44 Sodium Level 143 MEQ/L Potassium Level 3.7 MEQ/L Chloride Level 108 MEQ/L Carbon Dioxide Level 18.9 MEQ/L Anion Gap 16 MEQ/L Blood Urea Nitrogen 57 MG/DL Creatinine 2.76 MG/DL Estimat Glomerular Filtration 27 ML/MIN Rate Random Glucose 318 MG/DL Calcium Level 7.7 MG/DL Phosphorus Level 1.9 MG/DL Magnesium Level 2.8 MG/DL B-Hydroxybutyrate 3.32 MMOL/L Imaging Last Impressions Head CT 06/13/162144 Signed Impressions: Service Date/Time: Monday, June 13, 2016 23:38 - CONCLUSION: Normal examination for a patient of this age. Víctor Nicole MD Chest X-Ray 06/13/162018 Signed Impressions: Service Date/Time: Monday, June 13, 2016 20:31 - CONCLUSION: Possible early lingular infiltrate. Jean-Pierre Bhakta MD Objective Remarks GENERAL: Well-nourished, well-developed patient. SKIN: Warm and dry. HEAD: Normocephalic. EYES: No scleral icterus. No injection or drainage. NECK: Supple, trachea midline. No JVD or lymphadenopathy. CARDIOVASCULAR: Regular rate and rhythm without murmurs, gallops, or rubs. RESPIRATORY: Breath sounds equal bilaterally. No accessory muscle use. GASTROINTESTINAL: Abdomen soft, non-tender, nondistended. MUSCULOSKELETAL: No cyanosis, or edema. BACK: Nontender without obvious deformity. No CVA tenderness. A/P Assessment and Plan 1)DKA 2)Acute kidney injury 3)Dehydration 4)Leukocytosis Plan Neuro: Monitor neuro status and avoid sedatives CT brain in ED negative for acute process Pulm: Continue with oxygen keep sat >92% Bronchodilators PRN CV: Monitor HR and BP keep MAP>65mmHg GI: NPO for now, on Pepcid : Monitor renal function, I/O's, avoid nephrotoxins Cr: 2.76 from 3.96. Continue with IV hydration- on NS@250ml/hr Monitor BMP and lytes Q6. ID: Monitor for signs of infections ( Fever, WBC) follow up on urine cx. Check sputum cx, place on Rocephin1 gram daily Endo: On Insulin drip per DKA protocol switch to SSI AG closed (10) Heme: Monitor CBC GI prophylaxis- on pepcid DVT prophylaxis- Heparin SQ Will sign off and transfer acre to [facility] Level 2 Sammy Wheat MD Jun 14, 2016 09:46
[2016-06-14] MEDS: DOCUSATE SODIUM 100 MG CAP PO SCH ×2 (10:17→20:08)
[2016-06-14] MEDS: FAMOTIDINE 20 MG TAB PO SCH ×2 (10:18→20:08)
[2016-06-14] MEDS: HEPARIN SODIUM - SQ 10,000 UNITS/ML VIAL SQ SCH ×2 (10:21→22:30)
[2016-06-14] MEDS ORDERED: cefTRIAXone INJ 1,000 MG in SODIUM CHLORIDE 0.9% INJ 100 ML IV SCH (11:00)
[2016-06-14 11:31] LABS: AUTOMATED NEUTROPHIL # 5.9 TH/MM3 (1.8-7.7); BASOPHIL % 0.3 % (0.0-2.0); EOSINOPHIL % 0.4 % (0.0-4.0); HEMATOCRIT 38.3 % (39.0-51.0); HEMO FLAGS DIFF FINAL; LYMPH % 4.9 % (9.0-44.0); LYMPHOCYTE # 0.4 TH/MM3 (1.0-4.8); MEAN CELL VOLUME 82.6 FL (80.0-100.0); MEAN CORPUSCULAR HEMOGLOBIN 28.1 PG (27.0-34.0); MONO % 12.4 % (0.0-8.0); PLATELET COUNT 175 TH/MM3 (150-450); RED BLOOD COUNT 4.63 MIL/MM3 (4.50-5.90); RED CELL DISTRIBUTION WIDTH 12.7 % (11.6-17.2); WHITE BLOOD COUNT 7.2 TH/MM3 (4.0-11.0)
[2016-06-14 15:35] LABS: BICARBONATE 23.9 MEQ/L (21.0-32.0); MAGNESIUM 2.6 MG/DL (1.5-2.5); POTASSIUM 3.3 MEQ/L (3.5-5.1)
[2016-06-14] MEDS ORDERED: DEXTROSE 50% IN WATER 50 ML VIAL(D50) IV PUSH PRN (16:00)
[2016-06-14] MEDS ORDERED: GLUCAGON 1 MG/ML VIAL OTHER PRN (16:00)
--- NOTE | 2016-06-14 16:37 | EKG ---
Date Performed: 06/13/2016 Time Performed: 20:35:52 PTAGE: 31 years EKG: ECTOPIC ATRIAL RHYTHM POSSIBLE LEFT ATRIAL ENLARGEMENT MARKED RIGHT AXIS DEVIATION RIGHT BU NDLE BRANCH BLOCK Clinical correlation is recommended NO PRIOR TRACING FOR COMPARISON ABNORMAL ECG NO PREVIOUS TRACING DOCTOR: James oSto Interpretating Date/Time 06/14/2016 16:35:43
[2016-06-14] MEDS: INSULIN NovoLIN REGULAR SUPPLEMENTAL SCALE SQ SCH ×2 (17:10→20:19)
[2016-06-14] MEDS: ONDANSETRON HCL 4 MG/2 ML VIAL IV PRN (20:09)
[2016-06-15] VITALS: BP 141/84; PULSE 72; RESP 16; O2SAT 96
[2016-06-15 00:09] LABS: BETA-HYDROXYBUTYRATE 3.64 MMOL/L (0.00-0.39); MAGNESIUM 2.5 MG/DL (1.5-2.5); POTASSIUM 3.8 MEQ/L (3.5-5.1)
[2016-06-15 00:21] LABS: CALCIUM-PROTEIN CORRECTED 8.2 MG/DL (8.5-10.1)
[2016-06-15 02:00] VITALS: PULSE 68
[2016-06-15] MEDS: SODIUM CHLOR 0.9% 1000 ML INJ 1,000 ML IV SCH (03:34)
[2016-06-15] MEDS: ONDANSETRON HCL 4 MG/2 ML VIAL IV PRN (03:35)
[2016-06-15 04:00] VITALS: BP 128/94; PULSE 74; RESP 16; TEMP 97.9; O2SAT 94
[2016-06-15] MEDS: CHLORHEXIDINE GLUCONATE 2 % 1 PACK (2 CLOTHS) TOP SCH (04:00)
[2016-06-15] MEDS: INSULIN NovoLIN REGULAR SUPPLEMENTAL SCALE SQ SCH (04:05)
[2016-06-15 05:58] LABS: BASOPHIL % 0.4 % (0.0-2.0); EOSINOPHIL % 0.4 % (0.0-4.0); HEMATOCRIT 36.1 % (39.0-51.0); HEMO FLAGS DIFF FINAL; LYMPH % 18.3 % (9.0-44.0); LYMPHOCYTE # 1.2 TH/MM3 (1.0-4.8); MEAN CORPUSCULAR HGB CONC 34.9 % (32.0-36.0); MONO % 7.6 % (0.0-8.0); NEUT % 73.3 % (16.0-70.0); PLATELET COUNT 141 TH/MM3 (150-450); RED BLOOD COUNT 4.35 MIL/MM3 (4.50-5.90); RED CELL DISTRIBUTION WIDTH 13.5 % (11.6-17.2); WHITE BLOOD COUNT 6.8 TH/MM3 (4.0-11.0)
[2016-06-15 06:00] VITALS: PULSE 64
[2016-06-15 06:22] LABS: BICARBONATE 18.6 MEQ/L (21.0-32.0); MAGNESIUM 2.7 MG/DL (1.5-2.5)
--- NOTE | 2016-06-15 10:09 | PD.AMA ---
Against Medical Advice Note Discharge Disposition: Against Medical Advice AMA Statement Patient Alexey Wiseman has decided to leave the hospital against medical advice. This patient has the capacity to refuse care and understands the risks of leaving, including permanent disability and/or , and has had an opportunity to ask questions about his condition. The patient has been informed that he may return for care at any time, and follow up has been arranged/ advised. Mario Strong MD Jun 15, 2016 10:09
--- NOTE | 2016-06-15 10:11 | HHI.DS ---
Discharge Summary Admission Date Jun 13, 2016 at 21:29 Discharge Date: Jun 15, 2016 Admitting Diagnosis DKA (1) DKA (diabetic ketoacidoses) ICD Code: E13.10 Procedures none Brief History - From Admission 31 year old male presents because he has been vomiting at least 20 times and also had loose stools a few times. The patient reports that he last administered NovoLog insulin 8-10 units this morning. Per patient sometime today his insulin pump ran out of insulin. He is a type I diabetic that was first diagnosed 20 years of age. He is admitted to ICU with the DKA. CBC/BMP: 06/15/16 0538 06/15/16 0538 Significant Findings Laboratory Tests Test 06/13/16 06/13/16 06/13/16 06/13/16 20:30 20:31 22:16 22:45 White Blood Count 23.4 TH/MM3 (4.0-11.0) Mean Corpuscular Volume 105.1 FL (80.0-100.0) Mean Corpuscular Hemoglobin 27.2 % Concent (32.0-36.0) Neutrophils (%) (Auto) 78.7 % (16.0-70.0) Neutrophils # (Auto) 18.4 TH/MM3 (1.8-7.7) Monocytes # (Auto) 1.6 TH/MM3 (0-0.9) Neutrophils % (Manual) 71 % (16-70) Band Neutrophils % 11 % (0-6) Lymphocytes % 6 % (9-44) Monocytes % 10 % (0-8) Neutrophils # (Manual) 19.7 TH/MM3 (1.8-7.7) Metamyelocytes 2 % (0-1) Bedside Sodium 110 MMOL/L (138-146) Bedside Potassium GREATER THAN 9.0 MMOL/L (3.5-4.9) Bedside Chloride 86 MMOL/L (98-109) Bedside Blood Urea Nitrogen 109 MG/DL (8-26) Bedside Creatinine 4.7 MG/DL (0.8-1.3) Venous Blood pH 6.98 (7.360-7.400) Venous Blood Partial Pressure 15 mmHg (44-48) CO2 Venous Blood Partial Pressure 41 mmHg (35-40) O2 Venous Blood HCO3 4 mmol/L (22-26) Venous Blood Oxygen Saturation 63 % (70-76) Venous Blood Base Excess -25.9 mmol/L (-2-2) Sodium Level 117 MEQ/L (136-145) Potassium Level 6.0 MEQ/L (3.5-5.1) Chloride Level 76 MEQ/L (98-107) Carbon Dioxide Level 6.0 MEQ/L (21.0-32.0) Anion Gap 35 MEQ/L (5-15) Blood Urea Nitrogen 73 MG/DL (7-18) Creatinine 4.99 MG/DL (0.60-1.30) Estimat Glomerular Filtration 14 ML/MIN (>89) Rate Random Glucose 1305 MG/DL (74-106) Calcium Level 7.4 MG/DL (8.5-10.1) Protein Corrected Calcium 7.8 MG/DL (8.5-10.1) Magnesium Level 3.5 MG/DL (1.5-2.5) Alkaline Phosphatase 185 U/L (45-117) Albumin 3.3 GM/DL (3.4-5.0) B-Hydroxybutyrate 17.78 MMOL/L (0.00-0.39) Urine Turbidity HAZY (CLEAR) Urine Protein 30 mg/dL (NEG-TRACE) Urine Glucose (UA) 1000 mg/dL (NEG) Urine Ketones 40 mg/dL (NEG) Urine Occult Blood MOD (NEG) Urine Bacteria RARE /hpf (NONE) Urine Mucus FEW /lpf (OCC) Test 06/14/16 06/14/16 06/14/16 06/14/16 00:00 01:00 02:00 03:00 Random Glucose 1060 MG/DL 919 MG/DL 782 MG/DL 678 MG/DL (74-106) (74-106) (74-106) (74-106) Sodium Level 132 MEQ/L 134 MEQ/L (136-145) (136-145) Chloride Level 94 MEQ/L 96 MEQ/L (98-107) (98-107) Carbon Dioxide Level 10.2 MEQ/L 11.9 MEQ/L (21.0-32.0) (21.0-32.0) Anion Gap 28 MEQ/L (5-15) 26 MEQ/L (5-15) Blood Urea Nitrogen 74 MG/DL (7-18) 70 MG/DL (7-18) Creatinine 3.96 MG/DL 3.73 MG/DL (0.60-1.30) (0.60-1.30) Estimat Glomerular Filtration 18 ML/MIN (>89) 19 ML/MIN (>89) Rate Calcium Level 7.1 MG/DL 7.3 MG/DL (8.5-10.1) (8.5-10.1) Protein Corrected Calcium 7.7 MG/DL 7.8 MG/DL (8.5-10.1) (8.5-10.1) Magnesium Level 3.0 MG/DL 3.0 MG/DL (1.5-2.5) (1.5-2.5) Total Protein 5.9 GM/DL 6.1 GM/DL (6.4-8.2) (6.4-8.2) Test 06/14/16 06/14/16 06/14/16 06/14/16 07:44 11:06 14:13 22:53 Chloride Level 108 MEQ/L 110 MEQ/L (98-107) (98-107) Carbon Dioxide Level 18.9 MEQ/L 20.0 MEQ/L (21.0-32.0) (21.0-32.0) Anion Gap 16 MEQ/L (5-15) Blood Urea Nitrogen 57 MG/DL (7-18) 44 MG/DL (7-18) 33 MG/DL (7-18) Creatinine 2.76 MG/DL 1.99 MG/DL 1.53 MG/DL (0.60-1.30) (0.60-1.30) (0.60-1.30) Estimat Glomerular Filtration 27 ML/MIN (>89) 39 ML/MIN (>89) 53 ML/MIN (>89) Rate Random Glucose 318 MG/DL 134 MG/DL 319 MG/DL (74-106) (74-106) (74-106) Calcium Level 7.7 MG/DL 7.6 MG/DL 7.4 MG/DL (8.5-10.1) (8.5-10.1) (8.5-10.1) Phosphorus Level 1.9 MG/DL 1.7 MG/DL 1.6 MG/DL (2.5-4.9) (2.5-4.9) (2.5-4.9) Magnesium Level 2.8 MG/DL 2.6 MG/DL (1.5-2.5) (1.5-2.5) B-Hydroxybutyrate 3.32 MMOL/L 3.64 MMOL/L (0.00-0.39) (0.00-0.39) Hematocrit 38.3 % (39.0-51.0) Neutrophils (%) (Auto) 82.0 % (16.0-70.0) Lymphocytes (%) (Auto) 4.9 % (9.0-44.0) Monocytes (%) (Auto) 12.4 % (0.0-8.0) Lymphocytes # (Auto) 0.4 TH/MM3 (1.0-4.8) Sodium Level 146 MEQ/L (136-145) Potassium Level 3.3 MEQ/L (3.5-5.1) Protein Corrected Calcium 8.2 MG/DL (8.5-10.1) Total Protein 5.7 GM/DL (6.4-8.2) Test 06/15/16 05:38 Red Blood Count 4.35 MIL/MM3 (4.50-5.90) Hemoglobin 12.6 GM/DL (13.0-17.0) Hematocrit 36.1 % (39.0-51.0) Platelet Count 141 TH/MM3 (150-450) Neutrophils (%) (Auto) 73.3 % (16.0-70.0) Carbon Dioxide Level 18.6 MEQ/L (21.0-32.0) Blood Urea Nitrogen 27 MG/DL (7-18) Creatinine 1.31 MG/DL (0.60-1.30) Estimat Glomerular Filtration 64 ML/MIN (>89) Rate Random Glucose 325 MG/DL (74-106) Calcium Level 7.6 MG/DL (8.5-10.1) Phosphorus Level 1.7 MG/DL (2.5-4.9) Magnesium Level 2.7 MG/DL (1.5-2.5) Imaging Last Impressions Head CT 06/13/16 8260 Signed Impressions: Service Date/Time: Monday, June 13, 2016 23:38 - CONCLUSION: Normal examination for a patient of this age. Víctor Nicole MD Chest X-Ray 06/13/162018 Signed Impressions: Service Date/Time: Monday, June 13, 2016 20:31 - CONCLUSION: Possible early lingular infiltrate. Jean-Pierre Bhakta MD Hospital Course Patient's left AMA However while he was hospitalized he was treated for DKA with Insulin drip and admitted under the care of critical care medicine Pt Condition on Discharge: Guarded Discharge Disposition: Discharge Home Discharge Time: <= 30 minutes Mario Strong MD Jun 15, 2016 10:11
== END 2016-06-15 08:25 | disposition left against medical advice (07) | DRG 638 ==
LOC: NEPC 19:06 → NEDA 21:29 → HIME 06-14 01:30
PROVIDERS: ADMIT Hospitalist; ATTEND Hospitalist
DX: E10.10 Type 1 diabetes mellitus with ketoacidosis without coma (principal); N17.9 Acute kidney failure, unspecified; E87.5 Hyperkalemia; E86.0 Dehydration; F17.210 Nicotine dependence, cigarettes, uncomplicated; Z96.41 Presence of insulin pump (external) (internal); Z79.4 Long term (current) use of insulin
CPT/HCPCS: 70450; 71010; 80048; 80053; 81001; 82010; 82435; 82565; 82805; 82947; 82948; 83036; 83690; 83735; 84100; 84132; 84155; 84295; 84520; 85007; 85025; 85027; 87070; 87086; 87205; 87641; 93005; 94664; 96360; J0456; J0610; J0696; J1644; J1815; J1817; J2270; J2405; J7030; J7042; J7050; J7613

== ENCOUNTER 2016-08-01 19:35 | Emergency (ER) | payer BC ==
[~2016-08-01] VITALS: Ht 190.5 cm; Wt 93.2 kg
[2016-08-01 19:36] VITALS: BP 135/79; PULSE 84; RESP 16; TEMP 98.5; O2SAT 100
--- NOTE | 2016-08-01 20:43 | PD ---
HPI Chief Complaint: Chest Pain Time Seen by Provider: 20:39 Travel History International Travel<30 days: No Contact w/Intl Traveler<30days: No Traveled to known affect area: No History of Present Illness HPI Patient is a 31-year-old male presenting to emergency evaluation of right anterior chest wall pain and right rib pain secondary to falling 3 feet at approximate 4:30 this afternoon. Patient states when he fell he landed on his right lateral chest wall. He went to an urgent care center who sent him here to be evaluated. Patient states the pain is an 8 out of 10, burning and sharp. He states it's hard to breathe because of the pain, he is not short of breath. He denies any head injury or loss of consciousness. [facility] Past Medical History Medical History: Denies Significant Hx Cardiovascular Problems: No Diabetes: Yes (TYPE 1) Genitourinary: No Reproductive: No Respiratory: No Social History Alcohol Use: Yes (occasionally) Tobacco Use: Yes (one pack per day) Substance Use: Yes (pot) Allergies-Medications (Allergen,Severity, Reaction): Coded Allergies: No Known Allergies (Unverified , 08/01/16) Reported Meds & Prescriptions Reported Meds & Active Scripts Active Active Prescriptions or Reported Medications Unobtainable Review of Systems Except as stated in HPI: all other systems reviewed are Neg Respiratory: Positive: Pleuritic Pain Musculoskeletal: Positive: Myalgias, Arthralgias, Pain Physical Exam Narrative GENERAL: Thin, well-developed, alert male. He is uncomfortable, in no acute distress. SKIN: Focused skin assessment warm/dry. HEAD: Atraumatic. Normocephalic. EYES: Pupils equal and round. No scleral icterus. No injection or drainage. ENT: No nasal bleeding or discharge. Mucous membranes pink and moist. NECK: Trachea midline. No JVD. CARDIOVASCULAR: Regular rate and rhythm. No murmur appreciated. RESPIRATORY: No accessory muscle use. Diminished on right. No wheezing, rhonchi, rales noted. No crepitus noted when palpating anterior or lateral chest wall. GASTROINTESTINAL: Abdomen soft, non-tender, nondistended. Hepatic and splenic margins not palpable. MUSCULOSKELETAL: No obvious deformities. No clubbing. No cyanosis. No edema. NEUROLOGICAL: Awake and alert. No obvious cranial nerve deficits. Motor grossly within normal limits. Normal speech. PSYCHIATRIC: Appropriate mood and affect; insight and judgment normal. Data Data Last Documented VS Vital Signs Date Time Temp Pulse Resp B/P Pulse Ox O2 Delivery O2 Flow Rate FiO2 08/01/16 19:36 98.5 84 16 135/79 100 Orders Chest, Single Ap (08/01/16 ) Acetamin-Hydrocod 325-5 Mg ([place] 5-325 (08/01/16 20:45) MDM Medical Decision Making Medical Screen Exam Complete: Yes Emergency Medical Condition: Yes Interpretation(s) Vital Signs Date Time Temp Pulse Resp B/P Pulse Ox O2 Delivery O2 Flow Rate FiO2 08/01/16 19:36 98.5 84 16 135/79 100 Differential Diagnosis Fracture versus contusion versus pneumothorax versus other Narrative Course Patient is a 31-year-old male presenting to emergency for evaluation of chest wall pain secondary to falling this afternoon. Chest x-ray ordered, pain medication ordered per my attending physician. Vital signs are stable, he is well oxygenated on room air. Care of patient transferred to my attending physician. He will determine patient's disposition. Scripts Unable to Obtain Active Prescriptions or Reported Meds Kristin Carter Aug 01, 2016 20:43
[2016-08-01] MEDS ORDERED: ACETAMINOPHEN/HYDROcodone 325 MG/5 MG TAB PO ONE (20:45)
--- NOTE | 2016-08-01 21:01 | RADRPT ---
EXAM DATE/TIME: 08/01/2016 20:49 [facility] COMPARISON: CHEST SINGLE AP, June 13, 2016, 20:31. INDICATIONS : Chest pain and shortness of breath after fall. MEDICAL HISTORY : None. SURGICAL HISTORY : None. ENCOUNTER: Initial ACUITY: 1 day PAIN SCORE: 8/10 LOCATION: Bilateral chest FINDINGS: A single view of the chest demonstrates the lungs to be symmetrically aerated without evidence of mas s, infiltrate or effusion. The cardiomediastinal contours are unremarkable. Osseous structures are intact. CONCLUSION: No evidence of acute cardiopulmonary disease. Georgi Almanza MD on August 01, 2016 at 20:59 Board Certified Radiologist. This report was verified electronically.
--- NOTE | 2016-08-01 22:47 | PD ---
Data Data Last Documented VS Vital Signs Date Time Temp Pulse Resp B/P Pulse Ox O2 Delivery O2 Flow Rate FiO2 08/01/16 19:36 98.5 84 16 135/79 100 Orders Chest, Single Ap (08/01/16 ) Acetamin-Hydrocod 325-5 Mg ([place] 5-325 (08/01/16 20:45) MDM Medical Record Reviewed: Yes Supervised Visit with SAMAN: Yes Narrative Course I, Dr. Cox, have reviewed the advance practice practitioner's documentation and am in agreement, met with the patient face to face, made the diagnosis, and the medical decision making was done by me. *My assessment and Findings: Last 24 hours Impressions Chest X-Ray 08/01/16 0000 Signed Impressions: Service Date/Time: Monday, August 01, 2016 20:49 - CONCLUSION: No evidence of acute cardiopulmonary disease. Georgi Almanza MD The patient was signed out to me by the mid-level provider. At approximately 10 :15 PM the patient left the ER. No paperwork was signed. I was notified of the departure after the patient left. There is no pneumothorax or evidence of multiple rib fractures on chest x-ray. In this scenario the patient's disposition will be left AGAINST MEDICAL ADVICE. Diagnosis Primary Impression: Left against medical advice Referrals: Primary Care Physician 2 days Patient Instructions: General Instructions Departure Forms: Tests/Procedures Additional Instruction: You have a choice when it comes to health care, and we are glad that you chose [facility]. Hopefully, we have met your expectations on today's visit. You are welcome to return to [facility] at any time, as we are committed to meeting the health care needs of our community. Med/Other Pt SpecificInfo: No Change to Meds Scripts No Active Prescriptions or Reported Meds Disposition: 07 AGAINST MEDICAL ADVICE Condition: Stable Valdo Cox MD Aug 01, 2016 22:46
== END 2016-08-01 22:56 | disposition left against medical advice (07) ==
LOC: NEPD 19:35
DX: R07.89 Other chest pain (principal); Z53.21 Procedure and treatment not carried out due to patient leaving prior to being seen by health care provider; R07.81 Pleurodynia; F17.210 Nicotine dependence, cigarettes, uncomplicated; F12.90 Cannabis use, unspecified, uncomplicated; E10.9 Type 1 diabetes mellitus without complications; W19.XXXA Unspecified fall, initial encounter
CPT/HCPCS: 71010; 99283